=== PATIENT | male | born 1950 | race Caucasian/White ===

== ENCOUNTER 2018-01-06 07:02 | Emergency (ER) | payer BC, MEDICARE ==
[2018-01-06 07:12] VITALS: TEMP 98.4
[2018-01-06] MEDS ORDERED: PROPARACAINE 0.5% OPHTH DROPS 15 ML BTL LEFT EYE STA (07:17)
--- NOTE | 2018-01-06 07:19 | ED ---
Eye Problem HPI - General Chief complaint: Eye Problems Stated complaint: Lt corneal abrasion Time Seen by Provider: 01/06/18 07:14 Source: patient, RN notes reviewed Mode of arrival: ambulatory Limitations: no limitations - History of Present Illness Initial comments: 67-year-old male presents emergency Department with chief complaint of left eye irritation. He states he felt like something blew into his eye yesterday and has been rubbing it. He is concerned that he may have scratched his cornea. He states he has very poor vision to his left eye secondary to known cataract. Eyes any change from his normal baseline of vision. Patient states that is red , irritated and has been draining. Patient states his headache associated with his eye pain. Denies any pain with ocular movements. - Related Data Home Medications Medication Instructions Recorded Confirmed Acetaminophen/Diphenhydramine 1 tab PO HS PRN 01/06/18 01/06/18 [Tylenol PM Extra Strength] Ibuprofen [Motrin Ib] 400 mg PO Q6H PRN 01/06/18 01/06/18 Allergies Allergy/AdvReac Type Severity Reaction Status Date / Time No Known Allergies Allergy Verified 01/06/18 07:46 Review of Systems ROS Statement: Those systems with pertinent positive or pertinent negative responses have been documented in the HPI. ROS Other: All systems not noted in ROS Statement are negative. Past Medical History Past Medical History: No Reported History History of Any Multi-Drug Resistant Organisms: None Reported Past Surgical History: Hernia Repair Past Psychological History: No Psychological Hx Reported Smoking Status: Current every day smoker Past Alcohol Use History: Daily Past Drug Use History: None Reported General Exam Limitations: no limitations General appearance: alert, in no apparent distress Head exam: Present: atraumatic, normocephalic, normal inspection Eye exam: Present: PERRL, EOMI, conjunctival injection (Left), other (Cataract noted on the left, dye and Wood's lamp were used to evaluate the left eye there may be a small scleral abrasion there is no arch corneal abrasion noted). Absent: normal appearance, scleral icterus, periorbital swelling Expanded IOP (R) in [facility] IOP (L) in [facility] ENT exam: Present: normal exam, normal oropharynx, mucous membranes moist Neck exam: Present: normal inspection, full ROM. Absent: tenderness, meningismus, lymphadenopathy Respiratory exam: Present: normal lung sounds bilaterally. Absent: respiratory distress, wheezes, rales, rhonchi, stridor Cardiovascular Exam: Present: regular rate, normal rhythm, normal heart sounds. Absent: systolic murmur, diastolic murmur, rubs, gallop, clicks Course Vital Signs 01/06/18 07:10 Temperature 98.4 F Pulse Rate 85 Respiratory 18 Rate Blood Pressure 190/94 O2 Sat by Pulse 98 Oximetry Medical Decision Making - Medical Decision Making Case discussed with on-call ophthalmology Dr. Burr who recommends Diamox and patient will be sent over to his office for glaucoma. Disposition Clinical Impression: Glaucoma, Cataract, left eye, Abrasion of eye Disposition: HOME SELF-CARE Condition: Stable Instructions: Glaucoma (ED) Additional Instructions: Go directly to Dr. Burr's office.Please return to the Emergency Department if symptoms worsen or any other concerns. Is patient prescribed a controlled substance at d/c from ED?: No Referrals: Devon Burr MD [STAFF PHYSICIAN] - 1-2 days Time of Disposition: 07:58
[2018-01-06] MEDS ORDERED: acetaZOLAMIDE 250 MG TAB PO STA (07:36)
[2018-01-06 08:25] VITALS: BP 176/80; PULSE 72; RESP 16
== END 2018-01-06 08:22 | disposition home or self-care (01) ==
LOC: EC 07:02
DX: S05.02XA Injury of conjunctiva and corneal abrasion without foreign body, left eye, initial encounter (principal); H40.9 Unspecified glaucoma; H26.9 Unspecified cataract; R51 Headache; F17.200 Nicotine dependence, unspecified, uncomplicated
CPT/HCPCS: 99283